=== PATIENT | male | born 1950 | race Caucasian/White ===

== ENCOUNTER → 2017-06-06 | Outpatient (RCR) | payer OTHER, MEDICARE ==
[~2017-06-06] MED LIST: ATENOLOL; CLARITIN 1010 MG/TAB PO; EFFEXOR-XR150 MG PO; EPI EZ PEN1 MG/ML IM; FISH OIL500 MG PO; NAPROSYN500 MG PO; PRAVACHOL 20MG20 MG PO; PREDNISONE20 MG PO; PROVASTATIN; PROZAC 20MG20 MG PO; SARAFEM10 M1 PO; TENORMIN 5050 MG/TAB PO; TOPAMAX 25MG25 M1 PO; VITAMIN D31000 IU PO; VITAMIN D32000 IU PO
== END | disposition still patient (30) ==
LOC: WSPT → WSC 03-08 08:07 → WSPT 03-15 08:30 → WSC 04-11 07:00 → WSPT 04-13 07:30 → WSC 05-23 07:00 → WSPT 05-30 07:00
DX: I69.398 Other sequelae of cerebral infarction (principal); M62.81 Muscle weakness (generalized); R26.2 Difficulty in walking, not elsewhere classified; R20.0 Anesthesia of skin; Z74.09 Other reduced mobility
CPT/HCPCS: G8978-GP; G8979-GP

== ENCOUNTER 2017-06-20 07:00 | Outpatient (RCR) | payer OTHER, MEDICARE | END 2017-06-20 08:53 | disposition still patient (30) | LOC: WSPT 07:00 | DX: I69.854 Hemiplegia and hemiparesis following other cerebrovascular disease affecting left non-dominant side (principal); Z74.09 Other reduced mobility | CPT/HCPCS: G8979-GP; G8980-GP ==

== ENCOUNTER → 2018-09-12 | Outpatient (CLI) | payer MEDICARE, OTHER | LOC: COL.CARD 14:25 | DX: I49.3 Ventricular premature depolarization (principal) ==

== ENCOUNTER → 2021-05-11 | Outpatient (CLI) | payer MEDICARE, OTHER ==
[~2021-05-11] VITALS: Ht 175.3 cm; Wt 103.7 kg
[~2021-05-11] MED LIST changes: +ASPI325T6 PO; +ASPIRIN E.C. 8181 MG PO; +DIOVAN320 MG PO; +LIPITOR 40MG TA40 MG PO; +PLAVIX 75MG TAB75 MG PO; +PRILOSEC 20MG20 MG PO; +PROTONIX 40MG T40 MG PO
[2021-05-11 10:27] VITALS: BP 136/74; PULSE 62; TEMP 98.3
--- NOTE | 2021-05-11 12:07 | NUR ---
Patient started having chest pain while treadmill procedure was in process. Dr. Jacobson in room, disconitnued test early due to increasing chest pain.
== END ==
LOC: COL.CARD 10:16
DX: R07.9 Chest pain, unspecified (principal)
CPT/HCPCS: A9500

== ENCOUNTER 2021-05-27 11:30 | Day surgery (SDC) | payer MEDICARE, OTHER ==
[~2021-05-27] VITALS: Ht 175.3 cm; Wt 103.0 kg
[2021-05-27] VITALS (13 sets, daily range): BP systolic 116–153; BP diastolic 56–79; PULSE 56–73; TEMP 98–98.7
[~2021-05-27 11:30] MED LIST changes: -ASPIRIN E.C. 8181 MG PO; -LIPITOR 40MG TA40 MG PO; -PROTONIX 40MG T40 MG PO
[2021-05-27 12:26] LABS: HEMOGLOBIN 14.5 g/dl (13.5-18.0); MEAN CELL VOLUME 90 fl (80.0-100.0); MEAN CORPUSCULAR HEMOGLOBIN 31 pg (27.0-31.0); MEAN CORPUSCULAR HGB CONC 34 g/dl (33.0-37.0); MEAN PLATELET VOLUME 9.3 fl (7.4-10.4); PLATELET COUNT 238 K/mm3 (130-400); RED BLOOD COUNT 4.76 M/mm3 (4.20-5.60); REDCELL DISTRIBUTION WIDTH-CV 12.9 % (11.5-14.5)
[2021-05-27 12:29] LABS: INR 1.1 (0.8-3.0)
[2021-05-27 12:32] LABS: PARTIAL THROMBOPLASTIN TIME 26.8 SECONDS (26.0-37.0)
[2021-05-27 12:35] LABS: CREATININE, serum 0.82 (0.66-1.25); POTASSIUM 4.3 mmol/L (3.4-5.0)
--- NOTE | 2021-05-27 14:19 | NUR ---
SEE MERGE FOR ALL MEDICATION ADMINISTRATION TIMES, INTRA AND POST SEDATION ASSESSMENTA
--- NOTE | 2021-05-27 17:00 | NUR ---
PT PLEASANT, AOX4, DENIES PAIN, NO BLEEDING VISUALIZED, VERIFIED ANGIOMAX RATE WITH EMAR, POST OP VITALS BEING TAKEN, DIET ORDER PLACED, TR BAND IN PLACE, ASSESSMENT PERFORMED, MED REC COMPLETED, AT BEDSIDE.
--- NOTE | 2021-05-27 17:15 | NUR ---
angiomax taken off of pt
--- NOTE | 2021-05-27 18:00 | NUR ---
Pt VTE prophylaxis: Angiomax and plavix 2mLs taken out of radial band. At 13mLs. No oozing or bleeding at site
--- NOTE | 2021-05-27 18:18 | NUR ---
2mLs removed from TR band. No oozing or bleeding. 11mLs remaining
--- NOTE | 2021-05-27 18:30 | NUR ---
2mLs removed from TR band. No oozing/bleeding. 9mLs remaining.
--- NOTE | 2021-05-27 20:00 | NUR ---
PATIENT IS CALM IN BED.PATIENT IS POST CARDIAC HEART CATH.RT RADIAL SIE IS CDI.PATIENT DENIES PAIN.SAFETY MEASURES IN PLACE.NO OTHER NEEDS AT THIS TIME.
[2021-05-28 03:38] VITALS: BP 108/60; PULSE 59; TEMP 98
--- NOTE | 2021-05-28 05:45 | NUR ---
PATIENT HAD A GOOD NIGHT.DENIES PAIN.PUNCTURE SITE ON THE RT RADIAL REGION IS CLEAN AND DRY OPEN TO AIR.SAFETY MEASURES IN PLACE.NO OTHER NEEDS AT THIS TIME.
[2021-05-28 07:50] VITALS: BP 132/69; PULSE 62; TEMP 97.8
[2021-05-28 11:51] VITALS: BP 129/70; PULSE 64; TEMP 99.3
--- NOTE | 2021-05-28 12:11 | NUR ---
Plans to return home with Rama . SW met with patient about care. Patient reports that he has care with spouse at home. [place]. Patient rpeorts that his PCP is Dr. Black and he also [facility] [place] but unsure on the team. Patient shares that he obtains his [facility]aitons [facility] the [facility] or [facility] if short term. Patient reports that he is able to drive and does not use any supports for mobility or other DMES. No DPOA. Patient denies having any pain or concerns with care. Patient was educated on supports through case management. NF>
--- NOTE | 2021-05-28 13:27 | NUR ---
Chaplain wilkes and offered support with patient.
[2021-05-28] MEDS ORDERED: PROTONIX 40MG T40 MG PO (14:01)
[2021-05-28] MEDS ORDERED: LIPITOR 40MG TA40 MG PO (14:01)
[2021-05-28] MEDS ORDERED: ASPIRIN E.C. 8181 MG PO (14:02)
--- NOTE | 2021-05-28 14:56 | NUR ---
Discharge paperwork reviewed with the patient. Patient verbalized an understanding to follow doctors orders. IV removed, tip intact. Gauze and coban applied. No further needs expressed. Patient ambulated independently to the ER entrace
[2021-05-28 16:14] VITALS: BP 118/64; PULSE 83; TEMP 98.3
== END 2021-05-28 14:56 | disposition home or self-care (01) ==
LOC: COL.CAR 11:30 → MEDICAL 16:58 → COL.CAR 05-28 14:56
PROVIDERS: Internal Medicine Interventional Cardiology
DX: I25.110 Atherosclerotic heart disease of native coronary artery with unstable angina pectoris (principal); I48.0 Paroxysmal atrial fibrillation; I25.10 Atherosclerotic heart disease of native coronary artery without angina pectoris; I63.9 Cerebral infarction, unspecified; I26.99 Other pulmonary embolism without acute cor pulmonale; Z20.822 Contact with and (suspected) exposure to COVID-19; R94.39 Abnormal result of other cardiovascular function study; Z95.5 Presence of coronary angioplasty implant and graft; Z79.82 Long term (current) use of aspirin; Z79.899 Other long term (current) drug therapy; Z79.02 Long term (current) use of antithrombotics/antiplatelets; Z82.49 Family history of ischemic heart disease and other diseases of the circulatory system
CPT/HCPCS: OP; C1725; C1769; C1874; C1887; C9600; J0583; J1644; J2250

== ENCOUNTER 2022-02-03 07:08 | Day surgery (SDC) | payer MEDICARE, OTHER ==
[~2022-02-03] VITALS: Ht 175.3 cm; Wt 104.7 kg
[2022-02-03] VITALS (17 sets, daily range): BP systolic 94–145; BP diastolic 51–80; PULSE 50–85; TEMP 97.5–98.5
[~2022-02-03 07:08] MED LIST changes: +ASPIRIN E.C. 8181 MG PO; +LIPITOR 40MG TA40 MG PO; +PROTONIX 40MG T40 MG PO
[2022-02-03 08:21] LABS: HEMATOCRIT 42.7 % (42.0-52.0); HEMOGLOBIN 14.3 g/dl (13.5-18.0); MEAN CELL VOLUME 91 fl (80.0-100.0); MEAN CORPUSCULAR HEMOGLOBIN 30 pg (27-31); MEAN CORPUSCULAR HGB CONC 34 g/dl (33.0-37.0); MEAN PLATELET VOLUME 9.3 fl (7.4-10.4); PLATELET COUNT 222 K/mm3 (130-400); RED BLOOD COUNT 4.71 M/mm3 (4.20-5.60); REDCELL DISTRIBUTION WIDTH-CV 12.6 % (11.5-14.5)
[2022-02-03 08:25] LABS: INR 1.1 (0.8-3.0); PROTHROMBIN TIME 12.3 SECONDS (9.7-12.8)
[2022-02-03 08:32] LABS: CALCIUM 8.5 mg/dL (8.4-10.2); CREATININE, serum 0.89 mg/dL (0.72-1.25); POTASSIUM 4.1 mmol/L (3.5-4.5)
[2022-02-03] MEDS ORDERED: TOPROL XL 25MG25 MG PO (08:37)
[2022-02-03] MEDS ORDERED: PRILOSEC 20MG20 MG PO (08:37)
[2022-02-03] MEDS ORDERED: LIPITOR 40MG TA40 MG PO (08:38)
[2022-02-03] MEDS ORDERED: ASPIRIN 32325 MG/TAB PO (08:39)
--- NOTE | 2022-02-03 09:12 | NUR ---
Initial visit; Patient and his thanked Clam Shovel Operator for offering prayer and encouragenent for his upcoming 'Procedure' Patient appears to be doing well.
--- NOTE | 2022-02-03 09:12 | NUR ---
Pt to procedure,report to dye lab technician nurse.
--- NOTE | 2022-02-03 09:29 | NUR ---
See merge for all medication, assessment, intervention, vital sign times.
--- NOTE | 2022-02-03 10:10 | NUR ---
Report received pt transferring to inpatient.
--- NOTE | 2022-02-03 10:45 | NUR ---
returned to room from [facility] [place] [facility] per bed, alert and oriented, skin warm and dry, IV infusing per dial-a-flow at 100ml/hr in left forearm, denies pain, radial band to right radius in place and is CD&I without bleeding or hematoma noted, at bedside
--- NOTE | 2022-02-03 15:38 | NUR ---
REVIEWED PHASE 1 CARDIAC REHAB EDUCATION WITH PATIENT -INCLUDING MODIFIABLE RISK FACTORS AND ACTION PLAN. DISCUSSED ENROLLING IN CARDIAC REHAB WITH PATIENT. PT CONSENTED TO COMPETING AT LEAST 12 SESSIONS. NO APPOINTMENT SCHEDULED DUE TO PT NOT BEING PRESENT AND PT WANTING TO CONFORM WITH HER SCHEDULE. STAFF WILL CALL NEXT WEEK TO SCHEDULE.
--- NOTE | 2022-02-03 18:29 | NUR ---
PT LAYING SUPINE IN BED ON ROOM AIR. PT STATES NO PAIN AT THIS TIME. RADIAL BAND IS STILL ON AND SITE IS CLEAR AND DRY. PT STATES NO NEEDS OR COMPLAINTS AT THIS TIME. CALL LIGHT IS WITHIN REACH.
--- NOTE | 2022-02-03 19:08 | NUR ---
Removed 3 ml of air from the 12 ml of air in TR band. Site is soft. No leakage noted. No hematoma noted. Will continue to remove air and monitor.
--- NOTE | 2022-02-03 20:17 | NUR ---
Removed 4 ml 30 mins after last air removal. Site reminas soft, no leakage/bruising noted. Removed the remaining 5 ml 30 mins later. Site is soft, non-edematous, no leakage. Will continue to monitor.
--- NOTE | 2022-02-03 23:55 | NUR ---
Pt alert and oriented this evening. Resting in bed. Pt had 12 ml of air in TR band from cardiac cath procedure. Removed air at increments. No edema, bruising, leakage, or redness noted at site. Radial pulse 2+. Distal extremities warm and pink and pt reports sensation. Pt denies pain. Shift assessment performed. Medications administered per orders and education provided. Pt VS stable. BP's have been running softer, 108/58 was last recorded. Pt denies dizziness or shakiness. Pt HR runs NSR/sinus juan. Afebrile. No edema noted in extremities. Pt reports no questions at this time. Will continue to monitor.
[2022-02-04 00:20] VITALS: BP 94/50; PULSE 62; TEMP 98.2
[2022-02-04 00:27] VITALS: BP 110/62
[2022-02-04 03:40] VITALS: BP 97/55; PULSE 61; TEMP 98.4
--- NOTE | 2022-02-04 05:25 | NUR ---
No adverse events overnight. Pt denies chest pain. Right radial site is clean/dry, no edema, bruising, or drainage. 2+ radial pulse. Distal extremities warm and pt has sensation. VS stable. Pt's BP has been running softer overnight. Pt denies dizziness/SOB. Remains on room air. Afebrile. Medications administered per orders. Pt reports no questions. Will continue to monitor.
--- NOTE | 2022-02-04 05:59 | NUR ---
Pt's BP's have run softer overnight. Notified Dr. Ren to verify whether or not to still administer the Imdur this morning. Provider was comfortable will the Imdur being administered as ordered.
[2022-02-04 06:23] LABS: BASO % 0.3 % (0.0-2.0); EOS # 0.2 K/mm3 (0.0-0.7); EOS % 2.6 % (0.0-4.0); GRAN # 4.5 K/mm3 (1.4-6.5); GRAN % 64.4 % (42.2-75.2); HEMATOCRIT 38.3 % (42.0-52.0); HEMOGLOBIN 13.1 g/dl (13.5-18.0); LYMPH # 1.8 K/mm3 (1.2-3.4); LYMPH % 25.1 % (20.0-51.0); MEAN CELL VOLUME 90 fl (80.0-100.0); MEAN CORPUSCULAR HEMOGLOBIN 31 pg (27-31); MEAN CORPUSCULAR HGB CONC 34 g/dl (33.0-37.0); MEAN PLATELET VOLUME 9.1 fl (7.4-10.4); MONO # 0.5 K/mm3 (0.1-0.6); MONO % 7.3 % (1.7-9.3); PLATELET COUNT 202 K/mm3 (130-400); RED BLOOD COUNT 4.25 M/mm3 (4.20-5.60); REDCELL DISTRIBUTION WIDTH-CV 12.8 % (11.5-14.5)
[2022-02-04 06:40] LABS: CALCIUM 8.2 mg/dL (8.4-10.2); CREATININE, serum 0.75 mg/dL (0.72-1.25); POTASSIUM 3.8 mmol/L (3.5-4.5)
[2022-02-04 07:51] VITALS: BP 95/53; PULSE 67; TEMP 98.4
--- NOTE | 2022-02-04 08:09 | NUR ---
PT SITTING UP IN CHAIR ON ROOM AIR ON PHONE TRYING TO ORDER BREAKFAST. PT STATES THAT HE IS NOT HAVING ANY PAIN OR DISCOMFORT AT THIS TIME. PT STATES THAT HE WOULD LIKE TO HAVE SOME COFFEE. THIS WAS GOTTEN FOR PT. RIGHT RADIAL SITE IS CLEAN AND DRY. BANDAID IS IN PLACE. PT STATES NO NEEDS EXCEPT BREAKFAST AT THIS TIME. ENCOURAGED PT TO KEEP CALLING AND TRYING. CALL LIGHT IS WITHIN REACH.
[2022-02-04 11:36] VITALS: BP 114/63; PULSE 54; TEMP 98
[2022-02-04] MEDS ORDERED: IMDUR 30MG30 MG/TAB PO (12:06)
--- NOTE | 2022-02-04 12:34 | NUR ---
Chaplain wilkes and offered support with patient.
== END 2022-02-04 13:10 | disposition home or self-care (01) ==
LOC: COL.CAR 07:08 → MEDICAL 11:15 → COL.CAR 02-04 13:10
PROVIDERS: Internal Medicine Cardiovascular Disease
DX: R06.02 Shortness of breath (principal); I25.10 Atherosclerotic heart disease of native coronary artery without angina pectoris; I25.110 Atherosclerotic heart disease of native coronary artery with unstable angina pectoris; I10 Essential (primary) hypertension; Z95.5 Presence of coronary angioplasty implant and graft
CPT/HCPCS: OP; C1725; C1769; C1874; C1887; J0583; J1644; J2250; J3010; Q9967

== ENCOUNTER 2022-02-24 14:24 | Outpatient (RCR) | payer MEDICARE, OTHER ==
[~2022-02-24 14:24] MED LIST changes: +ASPIRIN 32325 MG/TAB PO; +IMDUR 30MG30 MG/TAB PO; +TOPROL XL 25MG25 MG PO
== END 2022-02-28 | disposition home or self-care (01) ==
LOC: COL.CR
DX: Z48.812 Encounter for surgical aftercare following surgery on the circulatory system (principal); Z95.5 Presence of coronary angioplasty implant and graft

== ENCOUNTER 2022-03-13 17:16 | Emergency (ER) | payer MEDICARE, OTHER ==
[~2022-03-13] VITALS: Ht 175.3 cm; Wt 101.4 kg
[2022-03-13 17:34] VITALS: PULSE 64; TEMP 99.1
[2022-03-13 18:12] LABS: HEMATOCRIT 40.2 % (42.0-52.0); HEMOGLOBIN 13.5 g/dl (13.5-18.0); MEAN CELL VOLUME 89 fl (80.0-100.0); MEAN CORPUSCULAR HEMOGLOBIN 30 pg (27-31); MEAN CORPUSCULAR HGB CONC 34 g/dl (33.0-37.0); MEAN PLATELET VOLUME 8.9 fl (7.4-10.4); PLATELET COUNT 237 K/mm3 (130-400); REDCELL DISTRIBUTION WIDTH-CV 12.9 % (11.5-14.5)
[2022-03-13 18:43] LABS: ALBUMIN 3.7 gm/dL (3.4-4.8); ANION GAP 12 mmol/L (7-16); BLOOD UREA NITROGEN 38 mg/dL (8-26); CALCIUM 9.3 mg/dL (8.4-10.2); CARBON DIOXIDE 19 mmol/L (23-31); CHLORIDE 108 mmol/L (98-107); CREATININE, serum 1.68 mg/dL (0.72-1.25); GLUCOSE 93 mg/dL (70-99); PHOSPHOROUS 3.8 mg/dL (2.3-4.7); POTASSIUM 4.8 mmol/L (3.5-4.5); SODIUM 139 mmol/L (136-145)
[2022-03-13 18:54] LABS: TROPONIN-I < 0.010 ng/mL (0.00-0.033)
[2022-03-13 19:12] LABS: BAND 6 % (0-10); EOSINOPHIL 1 % (0-4); LYMPHOCYTE 64 % (20.0-51.0); NEUTROPHILS 22 % (42.0-75.2); PLATELET ESTIMATE NORMAL (NORMAL)
[2022-03-13 20:32] LABS: COLLECTION METHOD CLEAN CATCH
[2022-03-13 21:06] VITALS: BP 95/63
[2022-03-13 21:16] LABS: MUCOUS Present (NOT PRESENT); PH 5 (5-8); SQUAMOUS EPITHELIAL 0-2 /hpf (0-10); URINE APPEARANCE Hazy (CLEAR/HAZY); URINE BACTERIA None Seen /hpf (NONE SEEN); URINE BILIRUBIN Negative (NEGATIVE); URINE BLOOD Negative (NEGATIVE); URINE COLOR Yellow (YELLOW); URINE GLUCOSE Negative (NEGATIVE); URINE KETONE Trace (NEGATIVE); URINE LEUKOCYTE ESTERASE Negative (NEGATIVE); URINE NITRATE Negative (NEGATIVE); URINE PROTEIN(semi-quant) Negative (NEGATIVE); URINE RBC 0-2 /hpf (0-2); URINE UROBILINOGEN Negative (NEGATIVE)
[2022-03-14 08:15] LABS: PATHOLOGY DIFF REVIEW OK
== END 2022-03-13 21:07 | disposition home or self-care (01) ==
LOC: COL.ER 17:16
PROVIDERS: Emergency Medicine
DX: N28.9 Disorder of kidney and ureter, unspecified (principal); Z20.822 Contact with and (suspected) exposure to COVID-19; Z91.040 Latex allergy status

== ENCOUNTER → 2022-03-20 | Outpatient (CLI) | payer MEDICARE, OTHER | LOC: COL.RAD 14:12 | DX: K75.3 Granulomatous hepatitis, not elsewhere classified (principal); M47.814 Spondylosis without myelopathy or radiculopathy, thoracic region; R79.89 Other specified abnormal findings of blood chemistry; R06.02 Shortness of breath | CPT/HCPCS: Q9967 ==

== ENCOUNTER 2022-03-24 14:51 | Outpatient (RCR) | payer MEDICARE, OTHER | END 2022-03-30 | disposition home or self-care (01) | LOC: COL.CR | DX: Z48.812 Encounter for surgical aftercare following surgery on the circulatory system (principal); Z95.5 Presence of coronary angioplasty implant and graft ==

== ENCOUNTER 2022-04-21 15:01 | Outpatient (RCR) | payer MEDICARE, OTHER | END 2022-04-30 | disposition home or self-care (01) | LOC: COL.CR | DX: Z48.812 Encounter for surgical aftercare following surgery on the circulatory system (principal); Z95.5 Presence of coronary angioplasty implant and graft ==

== ENCOUNTER 2022-05-29 14:42 | Outpatient (RCR) | payer MEDICARE, OTHER | END 2022-05-31 | disposition home or self-care (01) | LOC: COL.CR | DX: Z48.812 Encounter for surgical aftercare following surgery on the circulatory system (principal); Z95.5 Presence of coronary angioplasty implant and graft ==

== ENCOUNTER 2022-07-24 15:00 | Outpatient (RCR) | payer MEDICARE, OTHER | END 2022-07-31 | disposition home or self-care (01) | LOC: COL.CR | DX: Z48.812 Encounter for surgical aftercare following surgery on the circulatory system (principal); Z95.5 Presence of coronary angioplasty implant and graft ==

== ENCOUNTER 2024-07-03 16:11 | Emergency (ER) | payer MEDICARE, OTHER ==
[~2024-07-03] VITALS: Ht 175.3 cm; Wt 100.0 kg
[2024-07-03 16:15] VITALS: TEMP 98.3
[2024-07-03 17:04] LABS: BASO % 0.3 % (0.0-2.0); EOS # 0.1 K/mm3 (0.0-0.7); EOS % 1.2 % (0.0-4.0); GRAN # 4.1 K/mm3 (1.4-6.5); GRAN % 52.9 % (42.2-75.2); HEMATOCRIT 47.1 % (42.0-52.0); HEMOGLOBIN 15.9 g/dl (13.5-18.0); LYMPH # 3.1 K/mm3 (1.2-3.4); LYMPH % 39.8 % (20.0-51.0); MEAN CELL VOLUME 92 fl (80.0-100.0); MEAN CORPUSCULAR HEMOGLOBIN 31 pg (27-31); MEAN CORPUSCULAR HGB CONC 34 g/dl (33.0-37.0); MEAN PLATELET VOLUME 9.3 fl (7.4-10.4); MONO # 0.4 K/mm3 (0.1-0.6); MONO % 5.5 % (1.7-9.3); PLATELET COUNT 251 K/mm3 (130-400); RED BLOOD COUNT 5.14 M/mm3 (4.20-5.60); REDCELL DISTRIBUTION WIDTH-CV 13.2 % (11.5-14.5)
[2024-07-03 17:14] LABS: BILIRUBIN,TOTAL 0.7 mg/dL (0.2-1.2); CALCIUM 9.3 mg/dL (8.4-10.2); TOTAL PROTEIN 7.1 g/dl (6.2-8.1)
[2024-07-03 17:20] LABS: TROPONIN-I 0.011 ng/mL (0.00-0.033)
[2024-07-03] MEDS ORDERED: Iohexol 300 - 100 ML VIAL IV ONE (17:34)
[2024-07-03] MEDS ORDERED: NS 100 ML IV SCH (17:35)
[2024-07-03 18:07] LABS: INR 1.2 (0.8-3.0); PROTHROMBIN TIME 12.9 SECONDS (9.7-12.8)
[2024-07-03 18:09] LABS: PARTIAL THROMBOPLASTIN TIME 28.4 SECONDS (26.0-37.0)
[2024-07-03 20:36] VITALS: BP 124/84; PULSE 74
== END 2024-07-03 20:37 | disposition home or self-care (01) ==
LOC: COL.ER 16:11
PROVIDERS: Emergency Medicine
DX: R42 Dizziness and giddiness (principal); R55 Syncope and collapse; Z91.040 Latex allergy status; Z79.02 Long term (current) use of antithrombotics/antiplatelets; Z79.899 Other long term (current) drug therapy; Z95.5 Presence of coronary angioplasty implant and graft; Z86.73 Personal history of transient ischemic attack (TIA), and cerebral infarction without residual deficits
CPT/HCPCS: Q9967

== ENCOUNTER → 2024-07-03 | Outpatient (CLI) | payer MEDICARE, OTHER ==
[2024-07-03 14:46] LABS: HEMATOCRIT 44.6 % (42.0-52.0); HEMOGLOBIN 15.5 g/dl (13.5-18.0); MEAN CELL VOLUME 90 fl (80.0-100.0); MEAN CORPUSCULAR HEMOGLOBIN 31 pg (27-31); MEAN CORPUSCULAR HGB CONC 35 g/dl (33.0-37.0); MEAN PLATELET VOLUME 9.2 fl (7.4-10.4); PLATELET COUNT 238 K/mm3 (130-400); RED BLOOD COUNT 4.95 M/mm3 (4.20-5.60); REDCELL DISTRIBUTION WIDTH-CV 13.2 % (11.5-14.5)
[2024-07-03 15:05] LABS: BILIRUBIN,TOTAL 0.7 mg/dL (0.2-1.2); CALCIUM 9.3 mg/dL (8.4-10.2); CREATININE, serum 0.85 mg/dL (0.72-1.25); POTASSIUM 4.2 mEq/L (3.5-4.5); TOTAL PROTEIN 7.2 g/dl (6.2-8.1)
[2024-07-03 15:11] LABS: TROPONIN-I 0.017 ng/mL (0.00-0.033)
[2024-07-03 15:58] LABS: THYROID STIMULATING HORMONE 3.401 uIU/mL (0.350-4.940)
== END ==
LOC: COL.LAB 14:13
DX: R42 Dizziness and giddiness (principal); R06.02 Shortness of breath

== ENCOUNTER 2024-07-04 08:57 | Emergency (ER) | payer MEDICARE, OTHER ==
[~2024-07-04] VITALS: Ht 175.3 cm; Wt 100.0 kg
[2024-07-04 10:48] LABS: BASO % 0.3 % (0.0-2.0); EOS # 0.1 K/mm3 (0.0-0.7); EOS % 1.5 % (0.0-4.0); GRAN # 4.2 K/mm3 (1.4-6.5); GRAN % 61.1 % (42.2-75.2); HEMATOCRIT 44.6 % (42.0-52.0); HEMOGLOBIN 15.3 g/dl (13.5-18.0); LYMPH # 2.1 K/mm3 (1.2-3.4); LYMPH % 30.4 % (20.0-51.0); MEAN CELL VOLUME 91 fl (80.0-100.0); MEAN CORPUSCULAR HEMOGLOBIN 31 pg (27-31); MEAN CORPUSCULAR HGB CONC 34 g/dl (33.0-37.0); MEAN PLATELET VOLUME 9.5 fl (7.4-10.4); MONO # 0.5 K/mm3 (0.1-0.6); MONO % 6.6 % (1.7-9.3); PLATELET COUNT 241 K/mm3 (130-400); RED BLOOD COUNT 4.88 M/mm3 (4.20-5.60); REDCELL DISTRIBUTION WIDTH-CV 13.3 % (11.5-14.5)
[2024-07-04 11:00] LABS: ALANINE AMINOTRANSFERASE 20 U/L (0-55); ALBUMIN 3.8 g/dL (3.4-4.8); ALKALINE PHOSPHATASE 76 U/L (40-150); ANION GAP 9 mmol/L (7-16); AST,SGOT 19 U/L (5-34); BILIRUBIN,TOTAL 0.7 mg/dL (0.2-1.2); BLOOD UREA NITROGEN 18 mg/dL (8-26); CALCIUM 9.1 mg/dL (8.4-10.2); CHLORIDE 110 mEq/L (98-107); CREATININE, serum 0.85 mg/dL (0.72-1.25); GLUCOSE 106 mg/dL (70-99); POTASSIUM 4.2 mEq/L (3.5-4.5); SODIUM 141 mEq/L (136-145); TOTAL PROTEIN 6.7 g/dl (6.2-8.1)
[2024-07-04 11:13] LABS: TROPONIN-I < 0.010 ng/mL (0.00-0.033)
[2024-07-04] MEDS ORDERED: Iohexol 300 - 100 ML VIAL IV ONE (11:24)
[2024-07-04] MEDS ORDERED: NS 100 ML IV SCH (11:25)
[2024-07-04 12:27] VITALS: BP 145/85; PULSE 52
== END 2024-07-04 12:30 | disposition home or self-care (01) ==
LOC: COL.ER 08:57
PROVIDERS: Physician Assistant
DX: R42 Dizziness and giddiness (principal); Z91.040 Latex allergy status
CPT/HCPCS: Q9967